=== PATIENT | male | born 1995 | race Caucasian/White ===

== ENCOUNTER 2019-03-19 18:52 | Emergency (ER) | payer BC ==
[2019-03-19 19:13] VITALS: BP 146/87; PULSE 76
--- NOTE | 2019-03-19 19:38 | EDM.PDOC ---
ED HPI GENERAL MEDICAL PROBLEM - General Chief Complaint: ENT Problem Stated Complaint: EAR PAIN Time Seen by Provider: 03/19/19 19:25 Source of Information: Reports: Patient History Limitations: Reports: No Limitations - History of Present Illness INITIAL COMMENTS - FREE TEXT/NARRATIVE: Patient states that he flew back in Wednesday since then he has been having left ear pressure and pain with it popping over the last 48 hours it seems has gotten worse states his mother gave him 2 amoxicillin that she had but is not helping he also took 4 Advil about 45 minutes prior to arrival with no results patient denies any ringing or roaring loss of hearing no discharge no dizziness lightheadedness no headache no vision issues states he has no medical problems and takes no medications Duration: Week(s): Quality: Reports: Ache, Throbbing Improves with: Reports: None Worsens with: Reports: None 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 [No Known Home Meds] 01/20/16 [History] Past Medical History - Past Health History Medical/Surgical History: Denies Medical/Surgical History Social & Family History - Tobacco Use Smoking Status *Q: Never Smoker ED ROS ENT - Review of Systems Review Of Systems: See Below Constitutional: Reports: No Symptoms. Denies: Fever, Chills, Malaise, Weakness , Fatigue HEENT: Reports: Ear Pain, Sinus Problem. Denies: Eye Pain, Glasses, Hearing Loss, Rhinitis, Throat Swelling, Vertigo, Vision Change Respiratory: Reports: No Symptoms Cardiovascular: Reports: No Symptoms Endocrine: Reports: No Symptoms GI/Abdominal: Reports: No Symptoms Musculoskeletal: Reports: No Symptoms Skin: Reports: No Symptoms Neurological: Reports: No Symptoms Psychiatric: Reports: No Symptoms Hematologic/Lymphatic: Reports: No Symptoms Immunologic: Reports: No Symptoms ED EXAM, ENT - Physical Exam Exam: See Below Exam Limited By: No Limitations General Appearance: Alert, WD/WN, No Apparent Distress Eye Exam: Bilateral Eye: EOMI, PERRL Ears: Normal External Exam, Normal Canal, Hearing Grossly Normal, Other (Right tympanic membrane within normal limits normal light reflexion or erythema no edema no air-fluid levels left normal light reflexion landmarks mildly displaced very mild erythema surrounding borders of the tympanic membrane diffuse positive air-fluid levels with a mild bulge no signs or symptoms of any secondary bacterial otitis media/infection) Nose: Normal Inspection, Normal Mucousa, No Blood Mouth/Throat: Normal Inspection, Normal Gums, Normal Lips, Normal Oropharynx, Normal Teeth Head: Atraumatic, Normocephalic Neck: Normal Inspection, Supple, Non-Tender, Full Range of Motion Respiratory/Chest: No Respiratory Distress, Lungs Clear, Normal Breath Sounds, No Accessory Muscle Use Cardiovascular: Normal Peripheral Pulses, Regular Rate, Rhythm, No Edema, No Gallop GI/Abdominal: Normal Bowel Sounds, Soft, Non-Tender, No Organomegaly Extremities: Normal Inspection, Normal Range of Motion, Non-Tender Neurological: Alert, Oriented, CN II-XII Intact, Normal Cognition, Normal Gait Psychiatric: Normal Affect Skin: Warm, Dry, Intact, Normal Color Course - Vital Signs Last Recorded V/S: Last Vital Signs Temp 37.4 C 03/19/19 18:55 Pulse 76 03/19/19 18:55 Resp 16 03/19/19 18:55 BP 146/87 H 03/19/19 18:55 Pulse Ox 98 03/19/19 18:55 Departure - Departure Time of Disposition: 19:35 Disposition: Home, Self-Care 01 Clinical Impression: Otitis media, Barotrauma, otic - Discharge Information Referrals: PCP,None [Primary Care Provider] - Forms: ED Department Discharge Additional Instructions: Take [id number] pseudoephedrine 30 mg 2 tabs every 6-8 hours for the next 3-4 days use Afrin [id number] one squirt each nostril every 12 hours 2 days only and then do not use the bottle for the next 3 months chew gum as much as possible over the next 2-3 days hold your nose and below until the ear pops easily perform this maneuver 20 times a day if possible do not force the ear to pop though follow-up with her primary care provider in the next 2-3 days return to the emergency room if anything gets worse or changes - Problem List & Annotations (1) Barotrauma, otic SNOMED Code(s): 38301443 Code(s): T70.0XXA - OTITIC BAROTRAUMA, INITIAL ENCOUNTER Status: Acute Current Visit: Yes (2) Otitis media SNOMED Code(s): 82030858 Code(s): H66.90 - OTITIS MEDIA, UNSPECIFIED, UNSPECIFIED EAR Status: Acute Current Visit: Yes Qualifiers: Otitis media type: serous Chronicity: acute Laterality: left
== END 2019-03-19 19:35 | disposition home or self-care (01) ==
LOC: VM.ED 18:52
DX: T70.0XXA Otitic barotrauma, initial encounter (principal); H66.92 Otitis media, unspecified, left ear
CPT/HCPCS: 99282

== ENCOUNTER 2024-12-03 12:04 | Emergency (ER) | payer BC ==
[2024-12-03] MEDS: Alum Hydrox/Mag Hydrox/Simeth 30 ML, Lidocaine 2% 15 ML PO ONE (12:24)
[2024-12-03 12:25] LABS: BASOPHILS PERCENT AUTO 0.4 % (0.2-1.2); EOSINOPHILS ABSOLUTE AUTO 0.2 x10^3/uL (0.0-0.5); EOSINOPHILS PERCENT AUTO 4.7 % (0.0-4.0); HEMATOCRIT 42.2 % (40.0-52.0); HEMOGLOBIN 15.2 g/dL (14.0-18.0); LYMPHOCYTES ABSOLUTE AUTO 1.5 x10^3/uL (1.0-4.8); LYMPHOCYTES PERCENT AUTO 28.5 % (25.0-50.0); MEAN CORPUSCULAR HEMOGLOBIN 31.8 pg (26.0-32.0); MEAN CORPUSCULAR VOLUME 88.3 fL (78.0-93.0); MONOCYTES ABSOLUTE AUTO 0.5 x10^3/uL (0.0-0.8); MONOCYTES PERCENT AUTO 9.2 % (2.0-11.0); NEUTROPHILS ABSOLUTE AUTO 2.9 x10^3/uL (1.8-7.7); NEUTROPHILS PERCENT AUTO 57.2 % (50.0-80.0); PLATELET COUNT,PLT 208 x10^3/uL (130-400); RED BLOOD CELL COUNT 4.78 x10^6/uL (4.5-6.0); WHITE BLOOD CELL COUNT,WBC 5.1 x10^3/uL (4.0-10.0)
[2024-12-03 12:44] LABS: ALANINE AMINOTRANSFERASE,ALT 37 U/L (16-63); ALBUMIN 4.2 g/dL (3.4-5.0); ALKALINE PHOSPHATASE 74 U/L (46-116); ASPARTATE AMNIOTRANSFERASE,AST 27 U/L (15-37); BILIRUBIN TOTAL 0.7 mg/dL (0.2-1.0); BLOOD UREA NITROGEN,BUN 21 mg/dL (7-18); CARBON DIOXIDE,CO2 26 mmol/L (21-32); CHLORIDE,CL 103 mmol/L (98-107); CREATININE 1.1 mg/dL (0.70-1.30); GLUCOSE RANDOM 95 mg/dL (70-99); POTASSIUM,K 4.1 mmol/L (3.5-5.1); PROTEIN TOTAL,TP 7.2 g/dL (6.4-8.2); SODIUM,NA 137 mmol/L (136-145)
[2024-12-03 12:45] LABS: ANION GAP 12.1 mmol/L (5-15); ESTIMATED GFR 93 mL/min (>=60)
[2024-12-03 13:20] VITALS: BP 129/74; PULSE 60
== END 2024-12-03 13:12 | disposition home or self-care (01) ==
LOC: VM.ED 12:04
DX: R07.89 Other chest pain (principal)
CPT/HCPCS: 36415; 71045; 80053; 84484; 85025; 93005; 99285; A9270; 93010; 99284